=== PATIENT | female | born 1940 | race Caucasian/White ===

== ENCOUNTER → 2021-11-02 07:37 | Outpatient (CLI) | payer MEDICARE, OTHER, SELFPAY ==
[2021-11-02 09:11] LABS: Alanine Aminotransferase 13 IU/L (<35); Albumin Globulin Ratio 1.1 (1.0-2.8); Alkaline Phosphatase 82 U/L (38-126); Aspartate Aminotransferase 19 IU/L (14-36); BUN Creatinine Ratio 21.2 (6-22); Bilirubin Total 0.4 mg/dL (0.2-1.3); Blood Urea Nitrogen 21 mg/dL (7-17); Carbon Dioxide 24 mmol/L (22-32); Chloride 109 mmol/L (98-107); Cholesterol 183 mg/dL (140-199); Estimated Glomerular Filt Rate 58 mL/min (>60); Globulin 3.5 g/dL (1.7-4.1); Glucose 94 mg/dL (80-110); HDL Cholesterol 53 mg/dL (40-60); HEMOLYSIS < 15 (0-50); LDL Cholesterol Calculated 116 mg/dL (<100); Potassium 4.1 mmol/L (3.4-5.1); Sodium 139 mmol/L (137-145); Total Protein 7.5 g/dL (6.3-8.2); Triglycerides 70 mg/dL (35-150)
[2021-11-02 10:15] LABS: TSH w/ Reflex to FT4 1.16 uIU/mL (0.47-4.68)
== END ==
PROVIDERS: PCP Registered Nurse Diabetes Educator; Referring Provider Registered Nurse Diabetes Educator; Visit Provider Registered Nurse Diabetes Educator
DX: E78.00 Pure hypercholesterolemia, unspecified (principal); I10 Essential (primary) hypertension; E78.5 Hyperlipidemia, unspecified
CPT/HCPCS: 36415; 80053; 80061; 84443

== ENCOUNTER → 2022-04-26 07:42 | Outpatient (CLI) | payer MEDICARE, OTHER, SELFPAY ==
[2022-04-26 08:45] LABS: Alanine Aminotransferase 16 IU/L (<35); Albumin 3.9 g/dL (3.5-5.0); Albumin Globulin Ratio 1.2 (1.0-2.8); Alkaline Phosphatase 81 U/L (38-126); Aspartate Aminotransferase 19 IU/L (14-36); BUN Creatinine Ratio 21.4 (6-22); Bilirubin Total 0.3 mg/dL (0.2-1.3); Blood Urea Nitrogen 21 mg/dL (7-17); Calcium 10.5 mg/dL (8.4-10.2); Carbon Dioxide 24 mmol/L (22-32); Chloride 106 mmol/L (98-107); Estimated Glomerular Filt Rate 58 mL/min (>60); Globulin 3.2 g/dL (1.7-4.1); Glucose 98 mg/dL (80-110); HEMOLYSIS < 15 (0-50); Potassium 4.4 mmol/L (3.4-5.1); Sodium 139 mmol/L (137-145); Total Protein 7.1 g/dL (6.3-8.2)
== END ==
PROVIDERS: PCP Registered Nurse Diabetes Educator; Referring Provider Registered Nurse Diabetes Educator; Visit Provider Registered Nurse Diabetes Educator
DX: E78.5 Hyperlipidemia, unspecified (principal); I10 Essential (primary) hypertension
CPT/HCPCS: 36415; 80053

== ENCOUNTER → 2022-04-29 10:44 | Outpatient (CLI) | payer MEDICARE, OTHER, SELFPAY ==
--- NOTE | 2022-04-29 10:45 | DI.CT.S_ITS ---
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 After the administration of intravenous contrast, 5 mm thick images again acquired from the diaphragm to the iliac crests in the arterial and urographic phases. 5 mm thick coronal and sagittal reformats were then acquired. For radiation dose reduction, the following was used: automated exposure control, adjustment of mA and/or kV according to patient size. COMPARISON: No comparisons are available. A report from outside CT abdomen in 2018 noted a small subcentimeter AML in the left upper renal pole correlating with ultrasound, 7 x 7 mm. FINDINGS: Image quality: Good Lower chest: Unremarkable nonspecific distal esophageal wall thickening is present. Solid organs: Subcentimeter hepatic lesions are too small to characterize. Liver is otherwise unremarkable. Gallbladder is unremarkable. Possible isodense calculi are present CBD is mildly dilated at 8-9 mm could consider LFT correlation. No pathologic pancreatic ductal dilation. No splenomegaly. No adrenal nodules. No hydronephrosis. No definite enhancing renal mass. In the upper pole of the left kidney, there is a fat containing lesion with cortical indentation measuring 8 x 9 mm (/92). Other subcentimeter lesions are too small to characterize. Vessels and lymph nodes: No abdominal aortic aneurysm or pathologic adenopathy by size criteria. Bowel and peritoneum: No evidence of bowel obstruction or pathologic ascites. Body wall: Unremarkable Bones: Scoliosis. Degenerative changes. IMPRESSION: Fat containing lesion in the left upper pole, likely the same abnormality described on CT report from 2018 and is probably stable. 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 Comparison images however are not available at this time. Other findings as above. Dictated by: Genaro Clemens M.D. on 04/29/2022 at 12:15 Approved by: Genaro Clemens M.D. on 04/29/2022 at 12:22
== END ==
PROVIDERS: PCP Registered Nurse Diabetes Educator; Referring Provider Registered Nurse Diabetes Educator; Visit Provider Registered Nurse Diabetes Educator
DX: D17.71 Benign lipomatous neoplasm of kidney (principal)
CPT/HCPCS: 74170; Q9967

== ENCOUNTER → 2022-06-28 10:52 | Outpatient (CLI) | payer MEDICARE, OTHER, SELFPAY ==
[2022-06-28 12:51] LABS: Add Manual Diff / Slide Review NO; Basophils Absolute Auto 100 /uL (0-100); Basophils Percent Auto 0.8 % (0-2); Eosinophils Absolute Auto 100 /uL (0-450); Hematocrit 37.3 % (36-46); Hemoglobin 12.3 g/dL (12.0-16.0); Lymphocytes Absolute Auto 1800 /uL (1100-4500); Lymphocytes Percent Auto 25.4 % (25-40); Mean Corpuscular Hemoglobin 29.3 PG (26-34); Mean Corpuscular Volume 88.9 fL (80-100); Monocytes Absolute Auto 700 /uL (0-900); Monocytes Percent Auto 10.4 % (3-14); Neutrophils Absolute Auto 4400 /uL (1500-7000); Neutrophils Percent Auto 61.4 % (50-75); Platelet Count 261 X10^3/uL (150-400); Red Cell Distribution Width 13.9 % (11.6-14.8); White Blood Cell Count 7.2 X10^3/uL (4.5-11.0)
[2022-06-28 13:19] LABS: HEMOLYSIS < 15 (0-50); Potassium 4.5 mmol/L (3.4-5.1)
[2022-06-28 13:20] LABS: BUN Creatinine Ratio 20.2 (6-22); Blood Urea Nitrogen 20 mg/dL (7-17); Calcium 10.4 mg/dL (8.4-10.2); Carbon Dioxide 28 mmol/L (22-32); Chloride 105 mmol/L (98-107); Estimated Glomerular Filt Rate 58 mL/min (>60); Glucose 84 mg/dL (80-110); Sodium 139 mmol/L (137-145)
[2022-06-28 15:04] LABS: Appearance Urine UA CLEAR; Bilirubin Urine UA NEGATIVE (NEGATIVE); Color Urine UA YELLOW; Glucose Urine UA NEGATIVE (Negative); Ketones Urine UA NEGATIVE (NEGATIVE); Leukocyte Esterase Urine UA 1+ (NEGATIVE); Nitrite Urine UA NEGATIVE (Negative); Occult Blood Urine UA NEGATIVE (Negative); Protein Urine UA NEGATIVE (Negative); Urobilinogen Urine UA 0.2 E.U./dL (0.2)
[2022-06-28 15:21] LABS: RBC Urine None Seen (0-5/HPF); Squamous Epithelial Cell Urine 1-5 /HPF (0-5/HPF); WBC Urine 10-30/HPF (0-5/HPF)
[2022-06-28 15:22] LABS: Bacteria Urine Few (2-10); Culture Indicated Urine Specimen Cultured
== END ==
PROVIDERS: PCP Registered Nurse Diabetes Educator; Referring Provider Orthopaedic Surgery; Visit Provider Orthopaedic Surgery
DX: Z01.818 Encounter for other preprocedural examination (principal); Z01.812 Encounter for preprocedural laboratory examination; N39.0 Urinary tract infection, site not specified
CPT/HCPCS: 36415; 80048; 81001; 85025; 87077; 87086; 87147; 87186; 93005

== ENCOUNTER → 2022-07-01 10:48 | Outpatient (CLI) | payer MEDICARE, OTHER, SELFPAY ==
--- NOTE | 2022-07-01 | DI.CT.S_ITS ---
PROCEDURE: CT UE RT WO CON INDICATIONS: Idiopathic aseptic necrosis of right shoulder TECHNIQUE: Noncontrast 1-1.5 mm thick sections acquired from the acromioclavicular joint to the inferior scapula, with coronal and sagittal reformatting. COMPARISON: [facility] [place], CR, XR SHOULDER 2+ VIEWS RIGHT, 10/30/2020, 9:52. [facility] [place], CR, XR SHOULDER 2+ VIEWS RIGHT, 04/01/2021, 14:19. [facility] [place], CR, XR SHOULDER 2+ VIEWS RIGHT, 05/31/2022, 14:22. FINDINGS: Image quality: Excellent. Bones: Chronic posttraumatic findings are seen in the proximal humeral head and neck. There is flattening and fragmentation of the medial humeral head articular surface. The humeral neck articulates with the inferior glenoid articular surface. Xuko-ht-wjuzoidc degenerative changes are seen at the acromioclavicular joint. The included ribs are intact. Soft tissues: Small glenohumeral effusion. No disproportionate atrophy of the rotator cuff musculature. The tendons, ligaments, articular cartilages, and labrum are not well evaluated with standard CT. The included portions of the right lung are clear. IMPRESSION: 1. Flattening and fragmentation of the humeral head articular surface with loss of bone stock, which may be secondary to prior osteonecrosis, subchondral fracture, or neuropathic arthropathy. Superimposed glenohumeral degenerative changes are present. 2. Chronic healed fracture deformity of the proximal humeral head and neck. 3. Mild to moderate acromioclavicular joint osteoarthrosis. Approved by: Ke Norris M.D. on 07/01/2022 at 13:15
== END ==
PROVIDERS: PCP Registered Nurse Diabetes Educator; Referring Provider Orthopaedic Surgery; Visit Provider Orthopaedic Surgery
DX: M87.011 Idiopathic aseptic necrosis of right shoulder (principal); M19.011 Primary osteoarthritis, right shoulder; M21.821 Other specified acquired deformities of right upper arm
CPT/HCPCS: 73200

== ENCOUNTER → 2022-07-08 10:38 | Outpatient (CLI) | payer MEDICARE, OTHER, SELFPAY ==
[2022-07-08 12:04] LABS: Appearance Urine UA SL CLOUDY; Bilirubin Urine UA NEGATIVE (NEGATIVE); Color Urine UA YELLOW; Glucose Urine UA NEGATIVE (Negative); Ketones Urine UA NEGATIVE (NEGATIVE); Leukocyte Esterase Urine UA 2+ (NEGATIVE); Nitrite Urine UA NEGATIVE (Negative); Occult Blood Urine UA NEGATIVE (Negative); Protein Urine UA NEGATIVE (Negative); Urobilinogen Urine UA 0.2 E.U./dL (0.2)
[2022-07-08 12:07] LABS: Bacteria Urine Few (2-10); Culture Indicated Urine Specimen Cultured; RBC Urine None Seen (0-5/HPF); Squamous Epithelial Cell Urine 5-10 /HPF (0-5/HPF); WBC Urine 10-30/HPF (0-5/HPF)
== END ==
PROVIDERS: PCP Registered Nurse Diabetes Educator; Referring Provider Registered Nurse Diabetes Educator; Visit Provider Registered Nurse Diabetes Educator
DX: N39.0 Urinary tract infection, site not specified (principal)
CPT/HCPCS: 81001; 87077; 87086; 87147; 87186

== ENCOUNTER → 2022-07-22 08:57 | Outpatient (CLI) | payer MEDICARE, OTHER, SELFPAY ==
[2022-07-22 10:18] LABS: Appearance Urine UA CLEAR; Bilirubin Urine UA NEGATIVE (NEGATIVE); Color Urine UA YELLOW; Glucose Urine UA NEGATIVE (Negative); Ketones Urine UA NEGATIVE (NEGATIVE); Leukocyte Esterase Urine UA NEGATIVE (NEGATIVE); Nitrite Urine UA NEGATIVE (Negative); Occult Blood Urine UA NEGATIVE (Negative); Protein Urine UA NEGATIVE (Negative); Urobilinogen Urine UA 0.2 E.U./dL (0.2)
[2022-07-22 11:03] LABS: Bacteria Urine Occasional (0-1); Culture Indicated Urine Cult Not Indicated; RBC Urine 1-5/HPF (0-5/HPF); Squamous Epithelial Cell Urine 1-5 /HPF (0-5/HPF); WBC Urine 1-5/HPF (0-5/HPF)
== END ==
PROVIDERS: PCP Registered Nurse Diabetes Educator; Referring Provider Orthopaedic Surgery; Visit Provider Orthopaedic Surgery
DX: M87.019 Idiopathic aseptic necrosis of unspecified shoulder (principal)
CPT/HCPCS: 81001

== ENCOUNTER 2022-08-26 06:24 | Inpatient (IN) | payer MEDICARE, OTHER, SELFPAY ==
[2022-08-18 14:52] VITALS: BMI 27.6
[2022-08-26] VITALS (7 sets, daily range): BP systolic 98–182; BP diastolic 52–100; PULSE 77–92; RESP 16; TEMP 35.9–36.3; O2SAT 94–98; BMI 27.6
--- NOTE | 2022-08-26 | DI.RAD.S_ITS ---
PROCEDURE: XR SHOULDER RT 1V INDICATIONS: intra-op right shoulder TECHNIQUE: 1 views of the shoulder were acquired. COMPARISON: [facility], , XR SHOULDER RT MIN 2V, 08/26/2022, 10:43. FINDINGS: Intraoperative shoulder arthroplasty. Hardware is intact with good anatomic alignment. IMPRESSION: Intraoperative shoulder arthroplasty. Dictated by: Felicia Orlando M.D. on 08/26/2022 at 19:37 Approved by: Felicia Orlando M.D. on 08/26/2022 at 19:37
--- NOTE | 2022-08-26 06:33 | DI.RAD.S_ITS ---
PROCEDURE: XR SHOULDER RT MIN 2V INDICATIONS: postop. TECHNIQUE: 1 views of the shoulder were acquired. COMPARISON: None. FINDINGS: Bones: No fractures or dislocations. No suspicious bony lesions. Visualized ribs appear intact. Expected positioning of the right total shoulder arthroplasty. Soft tissues: No suspicious soft tissue calcifications. Expected postoperative changes surrounding the surgical bed. IMPRESSION: Expected postoperative appearance of the right total shoulder arthroplasty. Dictated by: Mele Hart M.D. on 08/26/2022 at 11:38 Approved by: Mele Hart M.D. on 08/26/2022 at 11:39
[2022-08-26] MEDS: KETOROLAC 30 MG/ML VIAL IV (07:21)
[2022-08-26] MEDS: ACETAMINOPHEN 325 MG TABLET 975 MG PO (07:21)
--- NOTE | 2022-08-26 07:36 | P.HP_ITS ---
History of Present Illness History of Present Illness Date Patient Seen: 08/26/22 Time Patient Seen: 07:36 Date of Onset of Symptoms: 08/26/22 Chief complaint: INPT Narrative: Patient is a 81-year-old female, right-hand dominant, who sustained a ground level fall subsequently suffering a right proximal humerus fracture which was treated nonoperatively in 2020. She has a past medical history of hypertension, chronic kidney disease. This went onto a nonunion. She lost significant range of motion and progressively started having more pain in the shoulder. She can not perform ADLs with that side. She is here today for reverse total shoulder arthroplasty. She is had increasing pain since I last saw her and is having difficulty sleeping. No distal numbness or tingling. No other complaints at this time. She is here with her daughter. [facility] Medical History (Updated 07/20/22 @ 07:59 by Silvia Crow RN) Anesthesia complication Arm fracture, right (~2020) CKD (chronic kidney disease) stage 3, GFR 30-59 ml/min Dyslipidemia Easy bruisability Essential hypertension (~2007) Foot pain (~1999) Hearing loss (~2014) History of intracranial hemorrhage (08/28/20) Osteoarthritis Surgical History (Updated 07/20/22 @ 07:58 by Silvia Crow RN) Anesthesia H/O: hysterectomy (2000) History of carpal tunnel release (~1969) History of cataract removal with insertion of prosthetic lens History of gynecologic surgery (2004) History of total left knee replacement (2012) Hx of tonsillectomy S/P right unicompartmental knee replacement (2018) Family History Father Cancer Mother History of heart disease Social History household members: family Smoking Status: Never smoker alcohol intake: current Meds Home Medications and Allergies Home Medications Medication Instructions Recorded Confirmed Type cholecalciferol (vitamin D3) 125 125 mcg PO DAILY 09/21/21 08/26/22 History mcg (5,000 unit) capsule vit C 250 mg-vit E 90 mg-zinc 40 1 tab PO DAILY 09/21/21 08/26/22 History mg-copper 1 lc-xwvfpw-lhwupg capsule (PreserVision AREDS-2) lisinopril 40 mg tablet 40 mg PO DAILY #90 tabs 11/11/21 08/26/22 Rx aspirin 81 mg tablet,delayed 81 mg PO DAILY 07/02/22 08/26/22 History release ibuprofen 200 mg capsule 200 - 400 mg PO Q6H PRN Pain 07/02/22 08/26/22 History disabled parking #1 ea 07/13/22 07/13/22 Rx dnd-fid-kwfkrkde acid 1,000 ea PO 07/13/22 07/13/22 History mg-herbal 350 mg oral efferves powder pack (Airborne (ascorbic acid)) ipratropium bromide 42 mcg (0.06 2 spray intranasal DAILY #15 mL 07/29/22 Rx %) nasal spray Allergies Allergy/AdvReac Type Severity Reaction Status Date / Time eggplant AdvReac Mild hair in Verified 08/26/22 06:40 back of throat hydromorphone AdvReac Mild nausea and Verified 08/26/22 06:40 vomiting meperidine AdvReac Mild nausea and Verified 08/26/22 06:40 vomitiing Opioids - Morphine Analogues AdvReac Mild nausea and Verified 08/26/22 06:40 vomiting Review of Systems Review of Systems ROS: Yes All systems reviewed with the patient and are negative except as otherwise documented Exam Vital Signs (past 8 hours): - 08/26/22 06:53 Temperature 97.3 F L Pulse Rate 92 H Respiratory Rate 16 Blood Pressure 182/100 H Pulse Oximetry 98 Oxygen Delivery Method Room Air Oxygen Delivery Method Room Air Narrative Exam Narrative: HEENT: Head atraumatic eyes anicteric moist mucous membranes Cardiovascular: Palpable peripheral pulses extremities are warm and well perfused Respiratory: Breathing comfortably on room air Psychiatric: Appropriate mood and affect Neuro: No acute deficits Musculoskeletal: Exam of right upper extremity, forward elevation 15, external rotation 10, both passive and active. Unable to test strength and provocative maneuvers due to her significant limited range of motion. Sensation intact to light touch in median, radial, ulnar and axillary distribution. 2+ radial pulse with brisk capillary refill less than 2 seconds. 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 We have previously discussed the risks and benefits and these were again went over with her today in the preoperative holding area with her daughter in attendance. She expressed understanding with these risks and wished to go forward with surgery.
[2022-08-26] MEDS: CEFAZOLIN 2 GM/100 ML PREMIX 100 ML IV (07:52)
--- NOTE | 2022-08-26 08:30 | SUR.OPER ---
Beach chair on padded OR bed. Head on gel donut secured with tape over gauze. Non-operative arm secured padded and secured over abd. Pillow under knees. Safety belt at thigh. Cloth tape over blanket over lower legs.
[2022-08-26] MEDS: BUPIVACAINE 0.25% (PF) 60 ML, EPINEPHrine 0.3 MG INJ (08:37)
[2022-08-26] MEDS: TRANEXAMIC ACID 1,000 MG VIAL 1000 MG INJ ×2 (09:14→09:15)
--- NOTE | 2022-08-26 10:43 | P.OP_ITS ---
Operative Date/Time/Diagnoses Date of procedure: 08/26/22 Time of procedure: 10:44 Pre-op diagnosis: Right shoulder avascular necrosis Post-op diagnosis: same Procedure & Clinicians Procedure: Right reverse shoulder arthroplasty Same procedure as scheduled: Yes Indications: This is an 81-year-old female who sustained a right shoulder proximal humerus fracture which went on to avascular necrosis after nonoperative management, now in pain with very limited range of motion. She has failed all nonoperative management. For this reason she was indicated for reverse total shoulder arthroplasty. Surgeon: Rik Schofield Home Appliance Tech: Nallely Lay Click Yes if Unassisted: No Anesthesia Type: General Operative Notes Findings: Findings: Osteoarthritis of the glenoid and humeral head (avascular necrosis of the humeral head) as well as partially deficient rotator cuff as noted on preoperative imaging and under direct visualizatio Closure Type: primary Prosthetic devices, grafts, tissues, transplants, or devices: Tornier implants Base plate: standard 25 mm Glenosphere: Standard 36 mm Stem: Flex size 1A (angle 127.5?) Sebastien: High offset, 0 thickness Poly: Angle C (7.5?) 6 mm thickness Estimated Blood Loss (mL): 50 Blood products transfused: none Procedure in detail: Patient was seen in the preoperative holding unit. The correct right shoulder was identified and marked with my initials. Again we discussed the risks and benefits of surgery and they wished to go forward with surgery. The patient was brought back to the operating room and placed supine on the operating table. Smooth endotracheal intubation was performed by anesthesia. All prominences were padded and they were placed into the beach chair position. Intravenous antibiotics were given. The right shoulder was then prepped with the standard sterile preparation and draping. A time-out was then performed in my initials were again identified on the correct shoulder. 1 g of IV tranexamic acid was given. A standard deltopectoral incision was made. Skin flaps were made. The cephalic vein was identified and retracted laterally. This was protected throughout the remainder of the case. Sharp dissection was made along the deltoid, subacromial and subcoracoid space to release adhesions. The conjoined tendon was identified and the axillary nerve was palpated and continuous using the tug test. It was protected throughout the remainder of the case. A brown retractor was placed underneath the deltoid muscle and a darach retractor underneath the conjoint tendon. The anterior circumflex artery and associated veins on the lower border of the subscapularis were identified and tied off using 0-Vicryl. The biceps tendon was identified in the bicipital groove. This was released from its sheath, and taken from its origin on the glenoid and tied into the pectoralis tendon for a solid tenodesis. We then began a subscapularis peel. The subscapularis was tagged with an Ethibond suture. A 360 degree circumferential release of the subscapularis was performed with protection of the axillary nerve. The coracohumeral ligament was released at the base of the coracoid. The coracoacromial ligament was left intact. The shoulder was then dislocated. Osteophytes were removed using combination of rongeur and osteotome. The humeral head was noted at this point to be dysmorphic with a very small amount of calcar left. The rotator cuff was noted to be significantly thinned out. An intramedullary guide was used set at version of 30?. Using an oscillating saw a conservative humeral head cut was made. Impaction reamers were reamed up to a size 1 stem at an angle set at 127.5? matching the head cut. A neck protector was placed. Attention was then turned to the glenoid. After retracting the humeral head posteriorly a circumferential release was performed of the capsule with protection of the axillary nerve. The labrum was then released starting at the biceps anchor and going around the rim a small amount of triceps was released from the inferior glenoid. A center guide pin was then placed using the guide, followed by Reamer. After adequate cartilage was removed the center drill hole was drilled and measured. The base plate was then implanted and screwed into place. The superior drill hole was drilled and filled in a nonlocking fashion, followed by the inferior in non locking and anterior holes in locking fashion, the posterior hole was also filled. A 36 standard glenosphere was then selected and screwed into place onto the base plate. Turning back to the humerus, the humeral head was delivered and trialed with a high offset tray and an angle C poly (total angle of the construct was 135?). The arm was taken through range of motion and this was felt to be stable. The trial was then removed and a dilute Betadine wash was then performed with 1 L of sterile saline. The final stem was then impacted into the humerus. The shoulder was then reduced and again brought through range of motion and was felt to be stable. The subscapularis was not repairable (it was thin and unable to reach the lesser tuberosity). The interval was then closed using #2 Ethibond. The deltopectoral interval was then closed with #2 Ethibond. The skin was closed with 2-0 PDS and Monocryl followed by Aquacel dressing. Patient was awoken from anesthesia and brought back to the postoperative recovery unit without issue. They were placed into a sling. Assisting participation: This operation could not have been safely performed (without compromising the technical results or length of the procedure) without the assistance of a skilled certified ophthalmic surgical assistant. The certified ophthalmic surgical assistant was medically necessary for proper positioning, retraction and manipulation of instruments, proper exposure, graft prep, and manipulation of tissue. Complications: none Post-operative Condition: stable Disposition: PACU Plan for aftercare: Postoperative instructions: Sling to remain on for 6 weeks. No external rotation past neutral for 6 weeks. Okay for him to come off her shower. Okay to shower over the Aquacel dressing. If any water gets underneath the dressing, remove the dressing. First postoperative visit in 2 weeks.
== END 2022-08-26 12:11 | disposition home or self-care (01) | DRG 483 ==
PROVIDERS: Admitting Provider Orthopaedic Surgery; PCP Registered Nurse Diabetes Educator; Referring Provider Orthopaedic Surgery; Visit Provider Orthopaedic Surgery
PROC: 0RRJ00Z Replacement of Right Shoulder Joint with Reverse Ball and Socket Synthetic Substitute, Open Approach (ICD-10-PCS; CPT 23472; principal; 2022-08-26 07:45)
DX: M87.821 Other osteonecrosis, right humerus (principal); M19.011 Primary osteoarthritis, right shoulder; Z20.822 Contact with and (suspected) exposure to COVID-19
CPT/HCPCS: 64415; 73020; 73030; 76000; C1776; J0171; J0690; J1100; J1885; J2250; J2405; J2704; J3010

== ENCOUNTER → 2022-11-09 07:44 | Outpatient (CLI) | payer MEDICARE, OTHER, SELFPAY ==
[2022-11-09 08:56] LABS: Hemoglobin 12.2 g/dL (12.0-16.0); Mean Corpuscular HGB Conc 32.9 % (30-36); Platelet Count 260 X10^3/uL (150-400); Red Blood Cell Count 4.21 X10^6/uL (4.0-5.2); Red Cell Distribution Width 13.9 % (11.6-14.8); White Blood Cell Count 5.4 X10^3/uL (4.5-11.0)
[2022-11-09 09:21] LABS: Alanine Aminotransferase 16 IU/L (<35); Albumin 3.9 g/dL (3.5-5.0); Albumin Globulin Ratio 1.2 (1.0-2.8); Alkaline Phosphatase 79 U/L (38-126); Aspartate Aminotransferase 21 IU/L (14-36); BUN Creatinine Ratio 17.8 (6-22); Bilirubin Total 0.5 mg/dL (0.2-1.3); Blood Urea Nitrogen 19 mg/dL (7-17); Calcium 10.3 mg/dL (8.4-10.2); Carbon Dioxide 27 mmol/L (22-32); Chloride 107 mmol/L (98-107); Cholesterol 194 mg/dL (140-199); Estimated Glomerular Filt Rate 53 mL/min (>60); Globulin 3.3 g/dL (1.7-4.1); Glucose 100 mg/dL (80-110); HDL Cholesterol 57 mg/dL (40-60); HEMOLYSIS < 15 (0-50); LDL Cholesterol Calculated 119 mg/dL (<100); Potassium 4.2 mmol/L (3.4-5.1); Sodium 137 mmol/L (137-145); Total Protein 7.2 g/dL (6.3-8.2); Triglycerides 89 mg/dL (35-150)
[2022-11-09 09:57] LABS: Creatinine Urine Random 107.7 mg/dL
[2022-11-09 10:10] LABS: Microalbumin Urine Random < 0.6 mg/dL (0-1.6)
== END ==
PROVIDERS: PCP Registered Nurse Diabetes Educator; Referring Provider Registered Nurse Diabetes Educator; Visit Provider Registered Nurse Diabetes Educator
DX: E78.5 Hyperlipidemia, unspecified (principal); I10 Essential (primary) hypertension; N18.30 Chronic kidney disease, stage 3 unspecified
CPT/HCPCS: 36415; 80053; 80061; 82043; 82570; 85027

== ENCOUNTER → 2023-03-02 11:36 | Outpatient (CLI) | payer MEDICARE, OTHER, SELFPAY ==
--- NOTE | 2023-03-02 | DI.MG.S_ITS ---
BILATERAL DIGITAL SCREENING MAMMOGRAM 3D/2D WITH CAD: 03/02/2023 CLINICAL: Baseline exam. Routine screening. No prior exams were available for comparison. Both breasts are almost entirely fatty (category a/<25% glandular tissue). Current study was also evaluated with a Computer Aided Detection (CAD) system. There are benign calcifications in both breasts. There also are benign vascular calcifications in both breasts. No significant masses, calcifications, or other findings are seen in either breast. IMPRESSION: BENIGN There is no mammographic evidence of malignancy. A 1 year screening mammogram is recommended. Based on the Tyrer Cuzick model (a risk assessment model) the patient's lifetime risk is 0.4% and her 10 year risk is 0.0%. According to the ACR, ACS, and NCCN guidelines, an annual breast MRI exam along with mammogram is recommended if the patient's lifetime risk is 20% or greater. This exam was interpreted at Station ID: [id number]. NOTE: For mammograms, a report in lay terms will be sent to the patient. Approximately 15% of breast malignancies will not be visualized mammographically. In the management of a palpable breast mass, a negative mammogram must not discourage biopsy of a clinically suspicious lesion. Electronically Signed By: Audrey parisi/celio:03/02/2023 13:44:38 letter sent: Normal Exam ACR BI-RADS Category 2: Benign Finding(s) 3342F
--- NOTE | 2023-03-02 11:38 | DI.RAD.S_ITS ---
Bone Density Report Name: HAILEE DAVIS Age: 82 Sex: Female Ethnicity: White Date of : 1940 Indication: postmenopausal; screening for osteoporosis; Referring Provider: AREN PEPE Study: Bone densitometry was performed. Exam Date: March 02, 2023 Accession number: [id number] Bone Density: Region BMD T-score Z-score Classification AP Spine(L1-L4) 0.982 -0.6 2.1 Normal Femoral Neck (Left) 0.624 -2.0 0.3 Osteopenia Total Hip (Left) 0.732 -1.7 0.4 Osteopenia Femoral Neck (Right) 0.751 -0.9 1.5 Normal Total Hip (Right) 0.720 -1.8 0.3 Osteopenia Total Hip Mean 0.726 -1.8 0.4 Osteopenia World Health Organization criteria for BMD impression classify patients as: Normal (T-score at or above -1.0), Osteopenia (T-score between -1.0 and -2.5), or Osteoporosis (T-score at or below -2.5). 10-year Fracture Risk(1): Major Osteoporotic Fracture 15% Hip Fracture 4.5% Reported Risk Factors: [place] (), Neck BMD=0.624, BMI=27.8 (1) FRAX(R) Version 3.08. Fracture probability calculated for an untreated patient. Fracture probability may be lower if the patient has received treatment. Impression: The patient has low bone mass, based on the Left Femoral Neck T-score. The patient has an estimated ten-year risk of hip fracture of 4.5% and an estimated ten-year risk of major fracture of 15%, based on the WHO FRAX algorithm. Discussion: BONE DENSITY IS LOW AT ONE OR MORE SKELETAL SITES. THE PATIENT'S BMD AND CLINICAL RISK FACTORS CONTRIBUTE TO THIS PATIENT'S INCREASED RISK OF FRACTURE. This patient's lowest T-score is low at one or more skeletal sites. It meets the World Health Organization's (WHO) criteria for low bone mass (T-score between -1.0 and -2.5). The patient's 10-year risk of hip fracture as calculated by FRAX exceeds the threshold where pharmacological therapy is recommended by the National Osteoporosis Foundation (NOF). However, all treatment decisions require clinical judgment and consideration of individual patient factors, including patient preferences, comorbidities, previous drug use, risk factors not captured in the FRAX model (e.g., frailty, falls, vitamin D deficiency, increased bone turnover, interval significant decline in bone density) and possible under or overestimation of fracture risk by FRAX. The patient should follow a healthful lifestyle (good nutrition with adequate calcium and vitamin D, and appropriate weight-bearing exercise). Follow-Up: Consider a repeat BMD and Vertebral Fracture Assessment (VFA) exam in 2 years or sooner if medically necessary, to reassess this patient's status. Reported by: ZOLTAN HOFFMAN M.D. on 03/02/2023 11:58:00 AM.
== END ==
PROVIDERS: PCP Registered Nurse Diabetes Educator; Referring Provider Registered Nurse Diabetes Educator; Visit Provider Registered Nurse Diabetes Educator
DX: Z13.820 Encounter for screening for osteoporosis (principal); Z12.31 Encounter for screening mammogram for malignant neoplasm of breast; Z78.0 Asymptomatic menopausal state; M85.852 Other specified disorders of bone density and structure, left thigh
CPT/HCPCS: 77063; 77067; 77080

== ENCOUNTER → 2023-03-10 | Outpatient (CLI) | payer MEDICARE, OTHER, SELFPAY | PROVIDERS: PCP Registered Nurse Diabetes Educator; Visit Provider Registered Nurse Diabetes Educator ==

== ENCOUNTER → 2023-03-15 08:31 | Outpatient (CLI) | payer MEDICARE, OTHER, SELFPAY ==
[2023-03-15 10:14] LABS: Alanine Aminotransferase 25 IU/L (<35); Albumin 3.9 g/dL (3.5-5.0); Albumin Globulin Ratio 1.2 (1.0-2.8); Alkaline Phosphatase 79 U/L (38-126); Aspartate Aminotransferase 28 IU/L (14-36); Bilirubin Total 0.4 mg/dL (0.2-1.3); Blood Urea Nitrogen 18 mg/dL (7-17); Calcium 10.9 mg/dL (8.4-10.2); Carbon Dioxide 24 mmol/L (22-32); Chloride 103 mmol/L (98-107); Cholesterol 170 mg/dL (140-199); Estimated Glomerular Filt Rate 57 mL/min (>60); Globulin 3.3 g/dL (1.7-4.1); Glucose 92 mg/dL (80-110); HDL Cholesterol 49 mg/dL (40-60); HEMOLYSIS < 15 (0-50); LDL Cholesterol Calculated 103 mg/dL (<100); Potassium 4.8 mmol/L (3.4-5.1); Sodium 136 mmol/L (137-145); Total Protein 7.2 g/dL (6.3-8.2); Triglycerides 89 mg/dL (35-150)
[2023-03-15 10:21] LABS: Vitamin D 25 Hydroxy (D3) 68.7 ng/mL (30.0-100.0)
[2023-03-16 11:30] LABS: Ionized Calcium 5.6 mg/dL (4.5-5.6)
[2023-03-17 07:36] LABS: Calcium 10.3 mg/dL (8.7-10.3); Parathyroid Hormone, Intact 65 pg/mL (15-65)
[2023-03-27 15:09] LABS: 1,25-Dihydroxy, Vitamin D-2 <10 pg/mL (.)
== END ==
PROVIDERS: PCP Registered Nurse Diabetes Educator; Referring Provider Registered Nurse Diabetes Educator; Visit Provider Registered Nurse Diabetes Educator
DX: E78.5 Hyperlipidemia, unspecified (principal); N18.31 Chronic kidney disease, stage 3a; E83.52 Hypercalcemia; I10 Essential (primary) hypertension
CPT/HCPCS: 36415; 80053; 80061; 82306; 82310; 82330; 82652; 83970

== ENCOUNTER 2023-05-08 16:19 | Emergency (ER) | payer MEDICARE, OTHER, SELFPAY ==
[2023-05-08 16:23] VITALS: BP 162/85; PULSE 82; RESP 18; TEMP 36.2; O2SAT 99; BMI 28.3
--- NOTE | 2023-05-08 16:31 | DI.RAD.S_ITS ---
PROCEDURE: XR CHEST 1V INDICATIONS: chest pain TECHNIQUE: One view of the chest was acquired. COMPARISON: None. FINDINGS: Surgical changes and devices: Right shoulder arthroplasty in good position. Lungs and pleura: Lungs are clear. No pleural effusions or pneumothorax. Low lung volumes accentuate pulmonary interstitium and heart size. Mediastinum: Mediastinal contours appear normal. Heart size is normal. Bones and chest wall: No suspicious bony lesions. Overlying soft tissues appear unremarkable. IMPRESSION: No acute cardiopulmonary abnormality is seen. Approved by: Dex Henley M.D. on 05/08/2023 at 16:29
--- NOTE | 2023-05-08 16:38 | DI.CT.S_ITS ---
PROCEDURE: CT HEAD/BRAIN WO CON INDICATIONS: syncope, hit head, no thinners TECHNIQUE: Noncontrast 4.5 mm thick angled axial sections acquired from the foramen magnum to the vertex, with coronal and sagittal reformats. For radiation dose reduction, the following was used: automated exposure control, adjustment of mA and/or kV according to patient size. COMPARISON: None. FINDINGS: Image quality: Diagnostic. CSF spaces: Basal cisterns are patent. No extra-axial fluid collections. Ventricles are normal in size and shape. Brain: No midline shift. No intracranial masses or hemorrhage. Mendoza-white matter interface is normal. Skull and face: Calvarium and visualized facial bones are intact, without suspicious lesions. Incidental hyperostosis frontalis interna noted. Sinuses: Visualized sinuses and mastoids are clear. IMPRESSION: Mild age-appropriate atrophy and chronic ischemic change without intracranial hemorrhage or mass effect. Approved by: Dex Henley M.D. on 05/08/2023 at 16:46
--- NOTE | 2023-05-08 16:38 | DI.CT.S_ITS ---
PROCEDURE: CT CERVICAL SPINE WO CON INDICATIONS: syncope, hit head, no thinners TECHNIQUE: Noncontrast 3 mm thick sections acquired from the skull base to the T4 level. Sagittal and coronal reformats were then constructed. For radiation dose reduction, the following was used: automated exposure control, adjustment of mA and/or kV according to patient size. COMPARISON: None. FINDINGS: Image quality: Excellent. Bones: No fractures or dislocations. Visualized superior ribs are intact. Disc space narrowing and hypertrophic facet joints noted predominantly in mid cervical spine associated with grade 1 anterior spondylolisthesis C4-5. Craniovertebral relationships are normal. No significant osseous central canal stenosis. Soft tissues: Prevertebral soft tissues are normal in thickness. No paravertebral hematomas. No apical pneumothoraces. IMPRESSION: Multilevel degenerative disc disease and arthropathy without evidence of fracture or traumatic malalignment Approved by: Dex Henley M.D. on 05/08/2023 at 16:52
[2023-05-08 16:52] LABS: Add Manual Diff / Slide Review NO; Basophils Absolute Auto 100 /uL (0-100); Basophils Percent Auto 0.7 % (0-2); Eosinophils Absolute Auto 300 /uL (0-450); Eosinophils Percent Auto 3.6 % (2-4); Hemoglobin 12.8 g/dL (12.0-16.0); Lymphocytes Absolute Auto 2100 /uL (1100-4500); Lymphocytes Percent Auto 25.2 % (25-40); Mean Corpuscular HGB Conc 32.9 % (30-36); Mean Corpuscular Hemoglobin 29.5 PG (26-34); Mean Corpuscular Volume 89.7 fL (80-100); Monocytes Absolute Auto 700 /uL (0-900); Monocytes Percent Auto 7.9 % (3-14); Neutrophils Absolute Auto 5200 /uL (1500-7000); Neutrophils Percent Auto 62.6 % (50-75); Platelet Count 283 X10^3/uL (150-400); Red Blood Cell Count 4.35 X10^6/uL (4.0-5.2); White Blood Cell Count 8.3 X10^3/uL (4.5-11.0)
[2023-05-08 16:54] LABS: Prothrombin Time 11.6 SECONDS (9.4-12.5)
[2023-05-08 16:57] LABS: PTT Partial Thromboplastin Tim 34 SECONDS (25.1-36.5)
[2023-05-08 16:58] LABS: Alanine Aminotransferase 19 IU/L (<35); Albumin 4.4 g/dL (3.5-5.0); Albumin Globulin Ratio 1.2 (1.0-2.8); Alkaline Phosphatase 73 U/L (38-126); Aspartate Aminotransferase 25 IU/L (14-36); BUN Creatinine Ratio 21.1 (6-22); Bilirubin Total 0.5 mg/dL (0.2-1.3); Blood Urea Nitrogen 24 mg/dL (7-17); Calcium 10.7 mg/dL (8.4-10.2); Carbon Dioxide 23 mmol/L (22-32); Chloride 106 mmol/L (98-107); Creatine Kinase 41 U/L (30-135); Estimated Glomerular Filt Rate 48 mL/min (>60); Globulin 3.7 g/dL (1.7-4.1); Glucose 110 mg/dL (80-110); HEMOLYSIS < 15 (0-50); Lipase 101 U/L (23-300); Magnesium 1.9 mg/dL (1.6-2.3); Potassium 3.9 mmol/L (3.4-5.1); Sodium 139 mmol/L (137-145); Total Protein 8.1 g/dL (6.3-8.2)
[2023-05-08 17:10] LABS: Troponin I < 0.012 ng/mL (0.01-0.034)
--- NOTE | 2023-05-08 17:37 | ED.HEATRA ---
HPI - Head Injury <Emerson Hull PA-C - Last Filed: 05/08/23 18:37> General Chief complaint: Head Injury Stated complaint: fall hit head low bp Time Seen by Provider: 05/08/23 17:37 Source: patient and family Mode of arrival: Ambulatory History of Present Illness HPI Narrative: This is an 82-year-old female presents emergency department due to an episode of syncope just prior to arrival. Patient states that she had a large bowel movement, went to bed and felt little bit lightheaded and nauseous, and when she went back to the bathroom she had a syncopal episode falling and hitting her right hip and head. Patient's daughter states that the patient had lost conscious for about 10 seconds. Patient denies any extremity pain. She denies any slurred speech, vision changes, weakness, nausea, vomiting, abdominal pain currently. Patient's suspects that it was ?weird food day? involving a few abnormal foods that may have made her feel nauseated. Related Data Home Medications Medication Instructions Recorded Confirmed cholecalciferol (vitamin D3) 125 125 mcg PO DAILY 09/21/21 03/15/23 mcg (5,000 unit) capsule vit C 250 mg-vit E 90 mg-zinc 40 1 tab PO DAILY 09/21/21 03/15/23 mg-copper 1 ja-[id number] capsule (PreserVision AREDS-2) aspirin 81 mg tablet,delayed 81 mg PO DAILY 07/02/22 03/15/23 release ibuprofen 200 mg capsule 200 - 400 mg PO Q6H PRN Pain 07/02/22 03/15/23 vha-cia-wyoarwdr acid 1,000 ea PO 07/13/22 03/15/23 mg-herbal 350 mg oral efferves powder pack (Airborne (ascorbic acid)) Previous Rx's Medication Instructions Recorded disabled parking #1 ea 07/13/22 ipratropium bromide 42 mcg (0.06 2 spray intranasal DAILY #15 mL 11/17/22 %) nasal spray lisinopril 40 mg tablet 40 mg PO DAILY #90 tabs 11/17/22 albuterol sulfate 90 mcg/actuation 2 puff inhalation Q4-6H PRN cough 03/10/23 aerosol inhaler #8.5 grams amoxicillin 875 mg-potassium 1 tab PO BID #20 tabs 03/10/23 clavulanate 125 mg tablet benzonatate 200 mg capsule 200 mg PO TID PRN cough #30 caps 03/10/23 codeine 10 mg-guaifenesin 100 mg/5 10 ml PO Q6H PRN cough #118 mL 03/10/23 mL oral liquid ondansetron 4 mg disintegrating 4 mg PO Q8H PRN nausea and 05/08/23 tablet vomiting #20 tabs Allergies Allergy/AdvReac Type Severity Reaction Status Date / Time eggplant AdvReac Mild hair in Verified 05/08/23 16:23 back of throat hydromorphone AdvReac Mild nausea and Verified 05/08/23 16:23 vomiting meperidine AdvReac Mild nausea and Verified 05/08/23 16:23 vomitiing Opioids - Morphine Analogues AdvReac Mild nausea and Verified 05/08/23 16:23 vomiting Review of Systems <Emerson Hull PA-C - Last Filed: 05/08/23 18:37> Review of Systems Narrative: GENERAL: Denies chills, fatigue, malaise, fever, sweats. HEENT: Denies sinus pain, ear pain, sore throat, difficulty swallowing, dizziness. RESPIRATORY: Denies dyspnea, cough, wheezing, hemoptysis, sputum. CARDIOVASCULAR: Denies chest pain, palpitations, orthopnea, edema, GASTROINTESTINAL: Denies nausea, vomiting, abdominal pain, diarrhea, constipation, melena. : Denies dysuria, frequency, incontinence, hematuria, urinary retention. MUSCULOSKELETAL: Reports right hip pain, otherwise denies weakness, joint pain, or bony pain SKIN: Denies rash, skin lesions, or other NEUROLOGIC: Denies weakness, headache, numbness, change in speech, confusion, seizures, incoordination. PSYCHIATRIC: No concerning psychosocial issues. 12 point review of systems is negative except for those stated above Patient History <Emerson Hull PA-C - Last Filed: 05/08/23 18:37> Medical History (Updated 05/08/23 @ 18:36 by Emerson Hull PA-C) Fracture Risk Assessment Score (FRAX) indicating greater than 3% risk for hip fracture Osteopenia of multiple sites Anesthesia complication Easy bruisability Osteoarthritis CKD (chronic kidney disease) stage 3, GFR 30-59 ml/min Arm fracture, right (~2020) Foot pain (~1999) Hearing loss (~2014) History of intracranial hemorrhage (08/28/20) Dyslipidemia Essential hypertension (~2007) Surgical History Hx of tonsillectomy History of gynecologic surgery (2004) 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 HEAD: Atraumatic. Normocephalic. EYES: Pupils equal round and reactive. Extraocular motions intact. No scleral icterus. No injection or drainage. ENT: Nose without bleeding, purulent drainage. Throat without erythema, tonsillar hypertrophy or exudate. Airway patent. NECK: Trachea midline. Non tender EXTREMITIES: Tenderness to palpation to the right hip, otherwise No edema or joint tenderness. NEURO: AOx3. SKIN: No rash or erythema of visible areas CARDIOVASCULAR: Regular rate and rhythm without murmurs, gallops, or rubs. RESPIRATORY: Clear to auscultation. Breath sounds equal bilaterally. No wheezes, rales, or rhonchi. GASTROINTESTINAL: Abdomen soft, non-tender, nondistended. BACK: Nontender without deformity or crepitance. No flank tenderness. Initial Vital Signs Initial Vital Signs: Vital Signs Temperature 97.2 F L 05/08/23 16:23 Pulse Rate 82 05/08/23 16:23 Respiratory Rate 18 05/08/23 16:23 Blood Pressure 162/85 H 05/08/23 16:23 Pulse Oximetry 99 05/08/23 16:23 Oxygen Delivery Method Room Air 05/08/23 16:23 <Robyn Busby DO - Last Filed: 05/09/23 19:17> Initial Vital Signs Initial Vital Signs: Vital Signs Temperature 97.2 F L 05/08/23 16:23 Pulse Rate 82 05/08/23 16:23 Respiratory Rate 18 05/08/23 16:23 Blood Pressure 162/85 H 05/08/23 16:23 Pulse Oximetry 99 05/08/23 16:23 Oxygen Delivery Method Room Air 05/08/23 16:23 Course <Emerson Hull PA-C - Last Filed: 05/08/23 18:37> Orders Ordered: Discontinued Medications Sodium Chloride (Normal Saline 0.9%) 500 mls @ 1,000 mls/hr IV BOLUS ONE Stop: 05/08/23 18:32 Last Infusion: 05/08/23 18:46 Dose: Infused Documented By: Admin: 05/08/23 18:09 Dose: 1,000 mls/hr Documented By: DIANA Vital Signs Vital signs: Vital Signs - 8 hr 05/08/23 16:23 05/08/23 17:55 Temperature 97.2 F L Pulse Rate 82 81 Respiratory Rate 18 16 Blood Pressure 162/85 H 169/76 H Pulse Oximetry 99 98 Oxygen Delivery Method Room Air Room Air <Robyn Busby DO - Last Filed: 05/09/23 19:17> Orders Ordered: Discontinued Medications Sodium Chloride (Normal Saline 0.9%) 500 mls @ 1,000 mls/hr IV BOLUS ONE Stop: 05/08/23 18:32 Last Infusion: 05/08/23 18:46 Dose: Infused Documented By: Admin: 05/08/23 18:09 Dose: 1,000 mls/hr Documented By: DIANA Vital Signs Vital signs: Vital Signs - 8 hr 05/08/23 16:23 05/08/23 17:55 Temperature 97.2 F L Pulse Rate 82 81 Respiratory Rate 18 16 Blood Pressure 162/85 H 169/76 H Pulse Oximetry 99 98 Oxygen Delivery Method Room Air Room Air MDM - Head Injury <RICHARD Esquivel Last Filed: 05/08/23 18:37> Lab Data 05/08/23 16:37 05/08/23 16:37 Labs: Lab Results 05/08/23 Range/Units 16:37 WBC 8.3 (4.5-11.0) X10^3/uL RBC 4.35 (4.0-5.2) X10^6/uL Hgb 12.8 (12.0-16.0) g/dL Hct 39.0 (36-46) % MCV 89.7 (80-100) fL MCH 29.5 (26-34) PG MCHC 32.9 (30-36) % RDW 14.0 (11.6-14.8) % Plt Count 283 (150-400) X10^3/uL Neut % (Auto) 62.6 (50-75) % Lymph % (Auto) 25.2 (25-40) % O'Brien % (Auto) 7.9 (3-14) % Eos % (Auto) 3.6 (2-4) % Baso % (Auto) 0.7 (0-2) % Neut # (Auto) 5200 (1975-2293) /uL Lymph # (Auto) 2100 (9919-8854) /uL O'Brien # (Auto) 700 (0-900) /uL Eos # (Auto) 300 (0-450) /uL Baso # (Auto) 100 (0-100) /uL PT 11.6 (9.4-12.5) SECONDS INR 1.0 (0.9-1.3) APTT 34 (25.1-36.5) SECONDS Sodium 139 (137-145) mmol/L Potassium 3.9 (3.4-5.1) mmol/L Chloride 106 (98-107) mmol/L Carbon Dioxide 23 (22-32) mmol/L BUN 24 H (7-17) mg/dL Creatinine 1.14 H (0.52-1.04) mg/dL Estimated GFR 48 L (>60) mL/min BUN/Creatinine Ratio 21.1 (6-22) Glucose 110 (80-110) mg/dL Calcium 10.7 H (8.4-10.2) mg/dL Magnesium 1.9 (1.6-2.3) mg/dL Total Bilirubin 0.5 (0.2-1.3) mg/dL AST 25 (14-36) IU/L ALT 19 (<35) IU/L Alkaline Phosphatase 73 (38-126) U/L Total Creatine Kinase 41 (30-135) U/L Troponin I < 0.012 (0.01-0.034) ng/mL Total Protein 8.1 (6.3-8.2) g/dL Albumin 4.4 (3.5-5.0) g/dL Globulin 3.7 (1.7-4.1) g/dL Albumin/Globulin Ratio 1.2 (1.0-2.8) Lipase 101 (23-300) U/L Imaging Data Chest x-ray: Radiologist's Impression: [address] [address] XRay Report Signed Patient: Judy Wiggins MR#: [id number] : 1940 Acct:[id number] Age/Sex: 82 / F Date of Service: 05/08/23 Loc: ED Accession Number: [id number] Procedure: XR chest 1V Ordering Provider: Robyn Busby D.O. PROCEDURE: XR CHEST 1V INDICATIONS: chest pain TECHNIQUE: One view of the chest was acquired. COMPARISON: None. FINDINGS: Surgical changes and devices: Right shoulder arthroplasty in good position. Lungs and pleura: Lungs are clear. No pleural effusions or pneumothorax. Low lung volumes accentuate pulmonary interstitium and heart size. Mediastinum: Mediastinal contours appear normal. Heart size is normal. Bones and chest wall: No suspicious bony lesions. Overlying soft tissues appear unremarkable. IMPRESSION: No acute cardiopulmonary abnormality is seen. Approved by: Dex Henley M.D. on 05/08/2023 at 16:29 CT - cervical spine: Radiologist's Impression: [place] [address] CT Scan Report Signed Patient: Judy Wiggins MR#: [id number] : 1940 Acct:[id number] Age/Sex: 82 / F Date of Service: 05/08/23 Loc: ED Accession Number: [id number] Procedure: CT cervical spine wo con Ordering Provider: Robyn Busby D.O. PROCEDURE: CT CERVICAL SPINE WO CON INDICATIONS: syncope, hit head, no thinners TECHNIQUE: Noncontrast 3 mm thick sections acquired from the skull base to the T4 level. Sagittal and coronal reformats were then constructed. For radiation dose reduction, the following was used: automated exposure control, adjustment of mA and/or kV according to patient size. COMPARISON: None. FINDINGS: Image quality: Excellent. Bones: No fractures or dislocations. Visualized superior ribs are intact. Disc space narrowing and hypertrophic facet joints noted predominantly in mid cervical spine associated with grade 1 anterior spondylolisthesis C4-5. Craniovertebral relationships are normal. No significant osseous central canal stenosis. Soft tissues: Prevertebral soft tissues are normal in thickness. No paravertebral hematomas. No apical pneumothoraces. IMPRESSION: Multilevel degenerative disc disease and arthropathy without evidence of fracture or traumatic malalignment Approved by: Dex Henley M.D. on 05/08/2023 at 16:52 CT scan - head: Radiologist's Impression: [address] [address] [address] Scan Report Signed Patient: Judy Wiggins MR#: [id number] : 1940 Acct:[id number] Age/Sex: 82 / F Date of Service: 05/08/23 Loc: ED Accession Number: [id number] Procedure: CT head/brain wo con Ordering Provider: Robyn Busby D.O. PROCEDURE: CT HEAD/BRAIN WO CON INDICATIONS: syncope, hit head, no thinners TECHNIQUE: Noncontrast 4.5 mm thick angled axial sections acquired from the foramen magnum to the vertex, with coronal and sagittal reformats. For radiation dose reduction, the following was used: automated exposure control, adjustment of mA and/or kV according to patient size. COMPARISON: None. FINDINGS: Image quality: Diagnostic. CSF spaces: Basal cisterns are patent. No extra-axial fluid collections. Ventricles are normal in size and shape. Brain: No midline shift. No intracranial masses or hemorrhage. Mendoza-white matter interface is normal. Skull and face: Calvarium and visualized facial bones are intact, without suspicious lesions. Incidental hyperostosis frontalis interna noted. Sinuses: Visualized sinuses and mastoids are clear. IMPRESSION: Mild age-appropriate atrophy and chronic ischemic change without intracranial hemorrhage or mass effect. Approved by: Dex Henley M.D. on 05/08/2023 at 16:46 Extremity x-ray #1: Radiologist's Impression: [address] [address] XRay Report Signed Patient: Judy Wiggins MR#: [id number] : 1940 Acct:[id number] Age/Sex: 82 / F Date of Service: 05/08/23 Loc: ED Accession Number: [id number] Procedure: XR hip w pel if done RT 2V Ordering Provider: Emerson Hull P.A-C PROCEDURE: XR HIP W PEL IF DONE RT 2V INDICATIONS: R hip sp fall TECHNIQUE: 3 views of the hip were acquired. COMPARISON: None. FINDINGS: Bones: No fractures or dislocations. No suspicious bony lesions. The visualized pelvic ring appears intact. Mild hip joint space narrowing and subchondral sclerosis. No evidence of fracture. Degenerative disc disease and arthropathy noted in the lower lumbar spine Soft tissues: No suspicious soft tissue calcifications or masses. IMPRESSION: Degenerative changes without fracture or foreign body Approved by: Dex Henley M.D. on 05/08/2023 at 17:22 ECG Data Interpretation: 1637: EKG is normal sinus rhythm rate 89 and free of any signs of ischemia or ectopy. No ST segmental elevation or depression. No T wave inversions. Multiple PVCs. Right bundle branch block. Similar to EKG done of June of last year. [facility] Narrative Medical decision making narrative: ED course: This is a 82-year-old female presents to the emergency department due to syncopal episode after a bowel movement. Complete workup was ordered. EKG unremarkable showed no acute changes, troponin within normal limits. CBC unremarkable. CMP did show a mildly elevated creatinine due to possible dehydration as patient does report some abnormal eating habits. 500 cc bolus given. Patient has a history of chronic kidney disease with slightly decreased GFR. Patient did hit head but did not have any neuro changes. CT head and neck were unremarkable for acute changes. Right hip x-ray negative as patient did report some right hip pain. Suspect vasovagal in nature. PE was considered but no chest pain or shortness of breath and not tachycardic. CC: Syncopal episode Complicating co-morbidities: Chronic kidney disease Data collected from: Previous notes Medical records reviewed: Patient has a history of osteopenia, chronic kidney disease, history of intracranial hemorrhage 3 years ago, hypertension. Has been here in the emergency department in the past. Differential considered, but not limited to: Syncopal episode, ischemic stroke, subarachnoid hemorrhage Exam documented above, pertinent findings include: Reassuring neuro exam and no findings on physical exam Lab Test results independently reviewed as above. Pertinent findings: Slightly elevated creatinine, 500 cc bolus given. Imaging studies independently reviewed: All imaging negative for acute changes Scores Used: None MIPS Elements: None Consultations: None Treatments: 500 cc bolus Re-evaluations: None Discussion: Discussed plan with the patient was comfortable with the plan Diagnosis: Syncopal episode Disposition: see below, along with detailed discharge instructions that have been reviewed with patient as well as indications for ED re-evaluation and additional outpatient follow up <Robyn Brooks Busby, DO - Last Filed: 05/09/23 19:17> Lab Data Labs: Lab Results 05/08/23 Range/Units 16:37 WBC 8.3 (4.5-11.0) X10^3/uL RBC 4.35 (4.0-5.2) X10^6/uL Hgb 12.8 (12.0-16.0) g/dL Hct 39.0 (36-46) % MCV 89.7 (80-100) fL MCH 29.5 (26-34) PG MCHC 32.9 (30-36) % RDW 14.0 (11.6-14.8) % Plt Count 283 (150-400) X10^3/uL Neut % (Auto) 62.6 (50-75) % Lymph % (Auto) 25.2 (25-40) % O'Brien % (Auto) 7.9 (3-14) % Eos % (Auto) 3.6 (2-4) % Baso % (Auto) 0.7 (0-2) % Neut # (Auto) 5200 (7267-8971) /uL Lymph # (Auto) 2100 (3217-7349) /uL O'Brien # (Auto) 700 (0-900) /uL Eos # (Auto) 300 (0-450) /uL Baso # (Auto) 100 (0-100) /uL PT 11.6 (9.4-12.5) SECONDS INR 1.0 (0.9-1.3) APTT 34 (25.1-36.5) SECONDS Sodium 139 (137-145) mmol/L Potassium 3.9 (3.4-5.1) mmol/L Chloride 106 (98-107) mmol/L Carbon Dioxide 23 (22-32) mmol/L BUN 24 H (7-17) mg/dL Creatinine 1.14 H (0.52-1.04) mg/dL Estimated GFR 48 L (>60) mL/min BUN/Creatinine Ratio 21.1 (6-22) Glucose 110 (80-110) mg/dL Calcium 10.7 H (8.4-10.2) mg/dL Magnesium 1.9 (1.6-2.3) mg/dL Total Bilirubin 0.5 (0.2-1.3) mg/dL AST 25 (14-36) IU/L ALT 19 (<35) IU/L Alkaline Phosphatase 73 (38-126) U/L Total Creatine Kinase 41 (30-135) U/L Troponin I < 0.012 (0.01-0.034) ng/mL Total Protein 8.1 (6.3-8.2) g/dL Albumin 4.4 (3.5-5.0) g/dL Globulin 3.7 (1.7-4.1) g/dL Albumin/Globulin Ratio 1.2 (1.0-2.8) Lipase 101 (23-300) U/L ECG Data Interpretation: 1637: EKG is normal sinus rhythm rate 89 and free of any signs of ischemia or ectopy. No ST segmental elevation or depression. No T wave inversions. Multiple PVCs. Right bundle branch block. Similar to EKG done of June of last year. Sinus rhythm frequent PVCs, left axis, right bundle-branch incomplete, left LVH. Patient has multiple PVCs noted rate 89 NC 182 QRS of 96 QTC 464. EKG from 06/28/[address] segments is clearly sinus rhythm without frequent PVCs. Discharge Plan Departure Patient Disposition: Home Clinical Impression: Episode of syncope Qualifiers: Syncope type: unspecified Qualified Code(s): R55 - Syncope and collapse Activity Restrictions/Additional Instructions: Thank you for coming to the [facility] Emergency Department today. As discussed your workup today was very reassuring. All your lab work was reassuring other than a slightly elevated kidney function which is in line with the your chronic kidney disease. Please do best to maintain hydrated and maintaining good p.o. intake. Your cardiac workup was unremarkable and no evidence of a ?heart attack?. Your CT head and brain showed no evidence of a brain bleed or fracture in your neck. Your right hip x-ray showed no fractures. You may take the medication prescribed for any nausea. Please return to the emergency department if you develop any chest pain, shortness of breath or any other concerning signs or symptoms. I hope you feel better soon. Please follow up with your primary care provider within a week if your symptoms continue. If you do not have a primary care provider please contact the [facility] Resource line at [phone]. They will ask some questions about your medical history and help you get set up with a provider in the community. Prescriptions: New ondansetron 4 mg tablet,disintegrating 4 mg PO Q8H PRN (Reason: nausea and vomiting) Qty: 20 0RF No Action Airborne (ascorbic acid) 1,000-350 mg powder effervescent in packet PO (DME) disabled parking See Rx Instructions .Route .MEDSUPPLY Qty: 1 0RF Rx Instructions: I find this patient to be medically disabled and qualified for Disabled Parking as indicated, and signed, on the Accompanying Disabled Parking Application for individuals. amoxicillin-pot clavulanate 875-125 mg tablet 1 tab PO BID Qty: 20 0RF codeine-guaifenesin 10-100 mg/5 mL liquid 10 ml PO Q6H PRN (Reason: cough) Qty: 118 0RF benzonatate 200 mg capsule 200 mg PO TID PRN (Reason: cough) Qty: 30 1RF albuterol sulfate 90 mcg/actuation HFA aerosol inhaler 2 puff inhalation Q4-6H PRN (Reason: cough) Qty: 8.5 0RF cholecalciferol (vitamin D3) 125 mcg (5,000 unit) capsule 125 mcg PO DAILY PreserVision AREDS-2 250-90-40-1 mg capsule 1 tab PO DAILY lisinopril 40 mg tablet 40 mg PO DAILY Qty: 90 3RF ipratropium bromide 42 mcg (0.06 %) spray,non-aerosol 2 spray intranasal DAILY Qty: 15 5RF Rx Instructions: administer into each nostril ibuprofen 200 mg Capsule 200 - 400 mg PO Q6H PRN (Reason: Pain) aspirin 81 mg Tablet,Delayed Release (Dr/Ec) 81 mg PO DAILY Referrals: Hussein Corona MD [Primary Care Provider] - Stand Alone Forms: Patient Portal/API ED Sign-out <Robyn Busby DO - Last Filed: 05/09/23 19:17> Cosign ED Attending Cosignature Attestation: I was immediately available in the department for consultation.
--- NOTE | 2023-05-08 17:50 | DI.RAD.S_ITS ---
PROCEDURE: XR HIP W PEL IF DONE RT 2V INDICATIONS: R hip sp fall TECHNIQUE: 3 views of the hip were acquired. COMPARISON: None. FINDINGS: Bones: No fractures or dislocations. No suspicious bony lesions. The visualized pelvic ring appears intact. Mild hip joint space narrowing and subchondral sclerosis. No evidence of fracture. Degenerative disc disease and arthropathy noted in the lower lumbar spine Soft tissues: No suspicious soft tissue calcifications or masses. IMPRESSION: Degenerative changes without fracture or foreign body Approved by: Dex Henley M.D. on 05/08/2023 at 17:22
[2023-05-08 17:55] VITALS: BP 169/76; PULSE 81; RESP 16; O2SAT 98
[2023-05-08] MEDS: SODIUM CHLORIDE 0.9% 500 ML 1000 ML IV (18:09)
[2023-05-08 18:45] VITALS: BP 156/69; PULSE 77; RESP 18; O2SAT 99
== END 2023-05-08 18:48 | disposition home or self-care (01) ==
PROVIDERS: Emergency Medicine; Emergency Provider Physician Assistant Medical; PCP Family Medicine
DX: R55 Syncope and collapse (principal); S09.90XA Unspecified injury of head, initial encounter; R07.9 Chest pain, unspecified; M25.551 Pain in right hip
CPT/HCPCS: 36415; 70450; 71045; 72125; 73502; 80053; 82550; 83690; 83735; 84484; 85025; 85610; 85730; 93005; 93010; 99284

== ENCOUNTER → 2024-06-26 16:25 | Outpatient (CLI) | payer MEDICARE, OTHER, SELFPAY ==
[2024-06-26 17:08] LABS: Add Manual Diff / Slide Review NO; Basophils Absolute Auto 100 /uL (0-100); Eosinophils Absolute Auto 200 /uL (0-450); Eosinophils Percent Auto 2.8 % (2-4); Hematocrit 37.7 % (36-46); Hemoglobin 12.5 g/dL (12.0-16.0); Lymphocytes Absolute Auto 2000 /uL (1100-4500); Lymphocytes Percent Auto 29.7 % (25-40); Mean Corpuscular HGB Conc 33.2 % (30-36); Mean Corpuscular Hemoglobin 29.9 PG (26-34); Mean Corpuscular Volume 90.3 fL (80-100); Monocytes Absolute Auto 600 /uL (0-900); Monocytes Percent Auto 9.8 % (3-14); Neutrophils Absolute Auto 3800 /uL (1500-7000); Neutrophils Percent Auto 56.7 % (50-75); Platelet Count 288 X10^3/uL (150-400); Red Blood Cell Count 4.17 X10^6/uL (4.0-5.2); White Blood Cell Count 6.6 X10^3/uL (4.5-11.0)
[2024-06-26 17:23] LABS: Alanine Aminotransferase 15 IU/L (<35); Albumin 4.2 g/dL (3.5-5.0); Albumin Globulin Ratio 1.3 (1.0-2.8); Alkaline Phosphatase 79 U/L (38-126); Aspartate Aminotransferase 22 IU/L (14-36); BUN Creatinine Ratio 20.9 (6-22); Bilirubin Total 0.3 mg/dL (0.2-1.3); Blood Urea Nitrogen 23 mg/dL (7-17); Calcium 10.6 mg/dL (8.4-10.2); Carbon Dioxide 22 mmol/L (22-32); Chloride 107 mmol/L (98-107); Estimated Glomerular Filt Rate 50 mL/min (>60); Globulin 3.2 g/dL (1.7-4.1); Glucose 91 mg/dL (80-110); HEMOLYSIS < 15 (0-50); Potassium 4.5 mmol/L (3.4-5.1); Sodium 138 mmol/L (137-145); Total Protein 7.4 g/dL (6.3-8.2)
[2024-06-27 13:35] LABS: TSH w/ Reflex to FT4 1.07 uIU/mL (0.47-4.68)
== END ==
PROVIDERS: PCP Registered Nurse Diabetes Educator; Referring Provider Physician Assistant; Visit Provider Physician Assistant
DX: N18.30 Chronic kidney disease, stage 3 unspecified (principal); R53.83 Other fatigue
CPT/HCPCS: 36415; 80053; 84443; 85025

== ENCOUNTER → 2024-08-27 14:26 | Outpatient (CLI) | payer MEDICARE, OTHER, SELFPAY ==
--- NOTE | 2024-08-27 14:29 | DI.MG.S_ITS ---
MM screening mammo BI: 08/27/2024. BI-RADS: 2 CLINICAL: 83-year old female for bilateral screening mammogram. Tyrer-Cuzick lifetime risk of 0.3%. No personal or first-degree family history of breast cancer. PRIOR EXAMS 03/02/2023. MAMMOGRAPHY TECHNIQUE: 2D and 3D (tomosynthesis) digital mammographic views obtained, with additional images as needed for full coverage. Current study was also evaluated with a Computer Aided Detection (CAD) system. DENSITY B. There are scattered areas of fibroglandular density. MAMMOGRAPHY FINDINGS Bilateral: Benign-appearing calcifications noted. Typically-benign vascular calcifications also noted. IMPRESSION: * No evidence of malignancy with benign findings. RECOMMENDATIONS Bilateral * Annual screening mammography. OVERALL ASSESSMENT CATEGORY BI-RADS-2: Benign. The [employer] recommends annual screening mammography beginning at age 40 for women with average risk of breast cancer. ELECTRONICALLY SIGNED: Stanislaw Carreno M.D. on 08/27/2024 at 03:44:51 PM PT Interpreting Station ID: [id number]
== END ==
LOC: MAMMO 14:27
PROVIDERS: PCP Registered Nurse Diabetes Educator; Referring Provider Registered Nurse Diabetes Educator; Visit Provider Registered Nurse Diabetes Educator
DX: Z12.31 Encounter for screening mammogram for malignant neoplasm of breast (principal)
CPT/HCPCS: 77063; 77067

== ENCOUNTER → 2024-12-06 13:49 | Outpatient (CLI) | payer MEDICARE, OTHER, SELFPAY ==
--- NOTE | 2024-12-06 13:50 | DI.MRI.S_ITS ---
PROCEDURE: MR LUMBAR SPINE WO CON INDICATIONS: Lumbar radiculopathy TECHNIQUE: Noncontrast sagittal T1 spin echo and T2 fast echo, sagittal STIR, and T2 fast spin echo through the lumbar spine. In cases with scoliosis, additional coronal T2 fast spin echo may be performed. COMPARISON: None. FINDINGS: Image quality: Excellent Moderate levoscoliosis of the lumbar spine, centered at L2-3. Grade 1 anterolisthesis of L3 on L4, L4 on L5. Vertebral body height of the lumbar spine are well maintained. Mild fibrovascular end plate change at T12-L1. Multilevel disc bulge and disc desiccation. Conus terminates at the level of T12-L1, and is unremarkable. Right neural from stenosis: Moderate at T12-L1, moderate at L2-3, mild at L3-4, moderate at L4-5. Left neural foraminal stenosis: Mild at T11-T12, mild at L3-4, moderate at L4- 5, L5-S1. Axial images: T11-T12: Disc bulge. Moderate central canal stenosis. T12-L1: Bilateral facet arthropathy. No central canal stenosis. Mild disc bulge. L1-2: Mild bilateral facet arthropathy. No central canal stenosis. L2-3: Disc bulge. Moderate right, mild left facet arthropathy. Ligamentum flap per trophy. Mild central canal stenosis. L3-4: Severe bilateral facet arthropathy. Disc bulge. Moderate to severe central canal stenosis. L4-5: Severe bilateral facet arthropathy. Posterior disc uncovering. Moderate to severe central canal stenosis. L5-S1: Disc bulge. Mild bilateral facet arthropathy. No central canal stenosis. Full Mild degenerative change of bilateral sacroiliac joint, left greater right. Visualized sacrum is intact. No abdominal aortic aneurysm. IMPRESSION: 1. 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 2. Up to moderate neural foraminal stenosis described above. Dictated by: Sabrina Brooks M.D. on 12/06/2024 at 16:10 Approved by: Sabrina Brooks M.D. on 12/06/2024 at 16:20
== END ==
LOC: MRI 13:49
PROVIDERS: PCP Registered Nurse Diabetes Educator; Referring Provider Orthopaedic Surgery Orthopaedic Surgery of the Spine; Visit Provider Orthopaedic Surgery Orthopaedic Surgery of the Spine
DX: M47.26 Other spondylosis with radiculopathy, lumbar region (principal); M47.27 Other spondylosis with radiculopathy, lumbosacral region; M48.061 Spinal stenosis, lumbar region without neurogenic claudication; M48.07 Spinal stenosis, lumbosacral region
CPT/HCPCS: 72148

== ENCOUNTER → 2025-01-28 07:21 | Outpatient (CLI) | payer MEDICARE, OTHER, SELFPAY ==
[2025-01-28 09:01] LABS: Blood Urea Nitrogen 20 mg/dL (7-17); Calcium 10.1 mg/dL (8.4-10.2); Carbon Dioxide 24 mmol/L (22-32); Chloride 106 mmol/L (98-107); Cholesterol 176 mg/dL (140-199); Estimated Glomerular Filt Rate > 60 mL/min (>60); Glucose 99 mg/dL (70-99); HDL Cholesterol 69 mg/dL (40-60); HEMOLYSIS < 15 (0-50); Potassium 4.5 mmol/L (3.4-5.1); Sodium 138 mmol/L (137-145); Triglycerides 72 mg/dL (35-150)
[2025-01-28 09:14] LABS: Vitamin D 25 Hydroxy (D3) 34.4 ng/mL (30.0-100.0)
[2025-01-29 21:08] LABS: Calcium 10.2 mg/dL (8.7-10.3); Parathyroid Hormone, Intact 85 pg/mL (15-65)
== END ==
PROVIDERS: PCP Registered Nurse Diabetes Educator; Referring Provider Registered Nurse Diabetes Educator; Visit Provider Registered Nurse Diabetes Educator
DX: N18.30 Chronic kidney disease, stage 3 unspecified (principal); E78.5 Hyperlipidemia, unspecified; I10 Essential (primary) hypertension; E83.52 Hypercalcemia
CPT/HCPCS: 36415; 80048; 80061; 82306; 82310; 83970